=== PATIENT | male | born 1995 | race Native Hawaiian/Other Pacific Islander ===

== ENCOUNTER 2017-10-21 02:41 | Emergency (ER) | payer OTHER ==
[~2017-10-21] VITALS: Ht 170.2 cm; Wt 53.1 kg
[2017-10-21 03:26] LABS: PLATELET COUNT 173 K/uL (142-355)
== END 2017-10-21 03:58 | disposition home or self-care (01) ==
LOC: ED 02:41
DX: J06.9 Acute upper respiratory infection, unspecified (principal)
CPT/HCPCS: 36415; 85027; 87081; 87804; 87880; 99283